=== PATIENT | female | born 1950 | race Caucasian/White ===

== ENCOUNTER 2024-10-01 11:23 | Outpatient (CLI) | payer MEDICARE, SELFPAY ==
[2024-10-01 12:33] LABS: Hematocrit 36.0 % (35.0-42.0); Hemoglobin 11.7 g/dL (11.7-13.8); Immature Granulocyte Percent A 0.4 % (0.0-0.0); Lymphocytes Absolute Auto 1.55 K/mm3 (1.10-4.50); Mean Corpuscular HGB Conc 32.5 g/dL (32-36); Mean Corpuscular Hemoglobin 30.5 pg (27.0-31.0); Mean Corpuscular Volume 93.8 fL (78.0-102.0); Nucleated Red Blood Cells Absolute Auto 0.00 K/mm3 (0.00-0.00); Nucleated Red Blood Cells Perc 0.0 % (0-0.0); Platelet Count Result 200 K/mm3 (150-420); Red Blood Count 3.84 M/mm3 (4.20-5.40); White Blood Count 5.2 K/mm3 (4.8-10.8)
[2024-10-01 12:43] LABS: Hemoglobin A1C 6.1 % (<5.7)
[2024-10-01 13:29] LABS: Alanine Aminotransferase 24 U/L (6-35); Albumin Level 4.4 g/dL (3.5-5.1); Alkaline Phosphatase 65 U/L (38-126); Anion Gap 9 mmol/L (4-12); Aspartate Amino Transferase 31 U/L (14-36); Bilirubin,Total 0.7 mg/dL (0.2-1.3); Blood Urea Nitrogen 27 mg/dL (7-17); Calcium 9.8 mg/dL (8.4-10.2); Carbon Dioxide 26 mmol/L (22-30); Chloride 105 mmol/L (98-107); Cholesterol 181 mg/dL (0-200); Estimated Glomerular Filt Rate 46; Glucose 101 mg/dL (65-110); HDL Direct 46 mg/dL; Osmolality Calculated 295 mOsm/kg (285-295); Potassium 4.9 mmol/L (3.4-5.0); Sodium 140 mmol/L (137-145); Total Protein 6.4 g/dL (6.3-8.2); Triglycerides 130 mg/dL (<150)
[2024-10-01 13:59] LABS: Thyroid Stimulating Hormone 1.180 uIU/mL (0.465-4.680)
== END 2024-10-01 11:24 | disposition home or self-care (01) ==
LOC: CHSLAB 11:27
PROVIDERS: PCP Emergency Medicine; Visit Provider Emergency Medicine
DX: E78.5 Hyperlipidemia, unspecified (principal); E11.9 Type 2 diabetes mellitus without complications; I10 Essential (primary) hypertension; R53.83 Other fatigue; E55.9 Vitamin D deficiency, unspecified
CPT/HCPCS: 36415; 80053; 80061; 82306; 83036; 84443; 85025

== ENCOUNTER 2024-10-19 10:32 | Outpatient (CLI) | payer MEDICARE, SELFPAY ==
--- NOTE | 2024-10-19 10:39 | EST_ITS ---
Patient Info Name: Monisha Sánchez Age: 74 years : 1950 Gender: Female Ht: 68 in Wt: 200 lbs BSA: 2.11 m2 HR: 69 bpm BP: 126 / 64 mmHg Technical Quality: Good Exam Date: 10/19/2024 10:47 AM Patient Status: O Admit Date: 10/19/2024 Exam Type: CA stress echo Treadmill exercise stress echocardiogram is performed. Staff Attending Provider: Henry Peres MD Exercise Technologist: Andre Villanueva III Exercise Physician: Boston Estes DO Summary 1. 1. Negative Jj exercise stress test for ischemic ST changes by ECG criteria. 2. 2. Poor functional capacity, achieving 4.6 METs of workload. 3. 3. Rapid HR response to exercise. 4. 4. Appropriate HR recovery at 1 minute post exercise. 5. 5. Negative stress echocardiogram for ischemia by wall motion analysis. 6. 6. Patient informed of the above results. Stress Echo Findings Left Ventricle Appropriate increase in LV endocardial thickening with systole. Appropriate augmentation of contractility with systole. No wall motion abnormality. Left Ventricle Normal LV systolic function, no wall motion abnormality. Protocol: Jj Stress ECG Details Stage: REST Duration (min): 9 min : 12 sec Speed (mph): 0.0 Grade (%): 0 HR (bpm): 79 SBP (mmHg): 126 DBP (mmHg): 64 METS: --- Stage: STAGE 1 Duration (min): 2 min : 0 sec Speed (mph): 1.7 Grade (%): 10 HR (bpm): 144 SBP (mmHg): 126 DBP (mmHg): 64 METS: --- Stage: RECOVERY Duration (min): 3 min : 57 sec Speed (mph): 0.0 Grade (%): 0 HR (bpm): 77 SBP (mmHg): 193 DBP (mmHg): 51 METS: --- Stage: STAGE 1 Duration (min): 2 min : 2 sec Speed (mph): 0.0 Grade (%): 0 HR (bpm): 145 SBP (mmHg): 126 DBP (mmHg): 64 METS: --- Stage: RECOVERY Duration (min): 4 min : 57 sec Speed (mph): 0.0 Grade (%): 0 HR (bpm): 78 SBP (mmHg): 193 DBP (mmHg): 51 METS: --- Stage: RECOVERY Duration (min): 2 min : 57 sec Speed (mph): 0.0 Grade (%): 0 HR (bpm): 90 SBP (mmHg): 193 DBP (mmHg): 51 METS: --- Stage: RECOVERY Duration (min): 5 min : 22 sec Speed (mph): 0.0 Grade (%): 0 HR (bpm): 74 SBP (mmHg): 167 DBP (mmHg): 53 METS: --- Stage: RECOVERY Duration (min): 1 min : 57 sec Speed (mph): 0.0 Grade (%): 0 HR (bpm): 101 SBP (mmHg): 193 DBP (mmHg): 65 METS: --- Stage: STAGE 1 Duration (min): 1 min : 0 sec Speed (mph): 1.7 Grade (%): 10 HR (bpm): 114 SBP (mmHg): 126 DBP (mmHg): 64 METS: --- Stage: REST Duration (min): 0 min : 43 sec Speed (mph): 0.0 Grade (%): 0 HR (bpm): 68 SBP (mmHg): 126 DBP (mmHg): 64 METS: --- Stage: RECOVERY Duration (min): 0 min : 57 sec Speed (mph): 0.0 Grade (%): 0 HR (bpm): 134 SBP (mmHg): 126 DBP (mmHg): 64 METS: --- Rest HR: 79 bpm Peak HR: 150 bpm Rest Sys BP: 126 mmHg Peak Sys BP: 193 mmHg Max Pred HR: 147 bpm % Max Pred HR: 102 % Target HR: 125 bpm Max RPP: 28,950 bpm*mmHg Dowling Score: -4 Termination Reason: Reached target heart rate or workload Cardiac Symptoms: Shortness of breath Max ST Seg Deviation: -1 mm Total Time: 2 min : 2 sec Rest Moyer BP: 64 mmHg Peak Moyer BP: 65 mmHg Angina Score: None Total METS: 4.6 Resting ECG Sinus rhythm. Stress ECG No ST changes. Arrhythmias None. Report Signatures Stress ECG Echo
== END 2024-10-19 10:33 | disposition home or self-care (01) ==
PROVIDERS: PCP Emergency Medicine; Visit Provider Emergency Medicine
DX: R00.2 Palpitations (principal)
CPT/HCPCS: 93351